=== PATIENT | male | born 1955 | race Caucasian/White ===

== ENCOUNTER → 2017-05-19 | Outpatient (CLI) | payer BC ==
[2017-05-19 07:15] LABS: Partial Thromboplastin Time 24.9 sec (22.0-30.0); Prothrombin Time 10.4 sec (9.0-12.0)
== END | disposition home or self-care (01) ==
LOC: LABWHC1 06:38
PROVIDERS: ATTEND Family Medicine
DX: R79.1 Abnormal coagulation profile (principal); Z51.81 Encounter for therapeutic drug level monitoring
CPT/HCPCS: 36415; 85610; 85730

== ENCOUNTER → 2018-09-12 | Outpatient (CLI) | payer BC ==
--- NOTE | 2018-09-12 08:01 | XR ---
EXAMINATION TYPE: XR chest 2V DATE OF EXAM: 09/12/2018 COMPARISON: NONE HISTORY: Shortness of breath TECHNIQUE: Frontal and lateral views of the chest are obtained. FINDINGS: Scattered senescent parenchymal changes noted. Hyperinflation compatible with COPD. No evidence for infiltrate. No evidence for atelectasis. Heart size is stable. Mediastinal structures are stable and grossly unremarkable. No evidence for hilar prominence. Degenerative changes dorsal spine. IMPRESSION: 1. No evidence for acute pulmonary disease.
--- NOTE | 2018-09-12 09:22 | US ---
EXAMINATION TYPE: US duplex aorta DATE OF EXAM: 09/12/2018 COMPARISON: NONE CLINICAL HISTORY: I10 hypertension. father had AAA, no symptoms per patient EXAM MEASUREMENTS: Abdominal Aorta: Proximal: unable to see due to bowel gas Mid: 1.5 x 2.2cm Distal: 1.8 x 1.9cm Bifurcation: Rt =1.1cm Lt =1.1cm *Limited imaging due to bowel gas and habitus, no obvious signs of aneurysm seen, unable to view prox imal portion, some arthrosclerotic changes noted. IMPRESSION: No evidence for abdominal aortic aneurysm at this time.
--- NOTE | 2018-09-12 11:34 | EST ---
EXERCISE STRESS AGE: 63 SEX: M HT: 5'5" WT: 225 PROTOCOL: Hernandez Stress Test STAGE: II DURATION OF EXERCISE: 7:27 HEART RATE REST: 53 BLOOD PRESSURE REST: 149/80 MAXIMUM HEART RATE ACHIEVED: 160 MAXIMUM BLOOD PRESSURE: 264/98 85% MPHR: 133 100% MPHR: 157 METS: 8.9 INDICATIONS: Hypertension. CLINICAL INFORMATION: Baseline heart rate 53 beats per minute. Baseline blood pressure 149/80 mmHg. Baseline 12-lead ECG shows normal sinus rhythm with normal ST segments. The interval is mildly prolonged. The patient exercised on a Hernandez protocol for 7 minutes 27 seconds. He had a hypertensive response to exercise. Peak blood pressure went up to 264/98 mmHg and was stopped on account of the hypertensive response. Peak heart rate 160 beats per minute. There was no ECG evidence for ischemia. No arrhythmias noted. IMPRESSION: Hypertensive response to exercise resulting in premature termination of the stress test. He exercised for 7.5 minutes. up until then there was no ECG evidence for ischemia nor were any arrhythmias noted. Then after a period of 5 minutes of rest, his blood pressure gradually improved to 162/72 mmHg. He was asymptomatic. The patient was referred back to see Dr. Burton for hypertension management. MMODL / IJN: [id number] /
== END | disposition home or self-care (01) ==
LOC: RADUSMAIN 07:43
PROVIDERS: ATTEND Internal Medicine
DX: I10 Essential (primary) hypertension (principal); R19.00 Intra-abdominal and pelvic swelling, mass and lump, unspecified site; Z87.891 Personal history of nicotine dependence
CPT/HCPCS: 71046; 93017; 93979

== ENCOUNTER → 2021-10-26 | Outpatient (CLI) | payer MEDICARE ==
[2021-10-26 17:56] LABS: Basophils # (A) 0.09 X 10*3/uL (0.00-0.10); Basophils % (A) 1.4 %; Eosinophils % (A) 3.1 %; HCT 46.7 % (39.6-50.0); HGB 15.5 g/dL (13.0-17.0); Immature Grans, Automated 0.2 %; Lymphocytes # (A) 1.96 X 10*3/uL (0.90-5.00); Lymphocytes % (A) 30.6 %; MCH 32.2 pg (27.0-32.0); MCHC 33.2 g/dL (32.0-37.0); MCV 96.9 fL (80.0-97.0); Mean Platelet Volume 9.6 fL (9.5-12.2); Monocytes % (A) 10.9 %; NRBC Per 100 WBC 0 /100 WBCS (0.0-0.0); Neutrophils # (A) 3.45 X 10*3/uL (1.80-7.70); Neutrophils % (A) 53.8 %; Platelet Count 243 X 10*3/uL (140-440); RBC 4.82 X 10*6/uL (4.40-5.60); RDW 12.8 % (11.5-14.5); WBC 6.41 X 10*3/uL (4.50-10.00)
[2021-10-26 18:02] LABS: Anion Gap 10.7 mmol/L (10.00-18.00); Carbon Dioxide 22.3 mmol/L (20.0-27.5); Potassium 4.3 mmol/L (3.5-5.5)
== END | disposition home or self-care (01) ==
LOC: LABPAT 12:48
PROVIDERS: ATTEND Orthopaedic Surgery Hand Surgery
DX: Z01.812 Encounter for preprocedural laboratory examination (principal); G56.21 Lesion of ulnar nerve, right upper limb
CPT/HCPCS: 80051; 85025

== ENCOUNTER 2021-11-03 12:45 | Day surgery (SDC) | payer MEDICARE ==
[2021-11-01 10:15] VITALS: BMI 33.0
--- NOTE | 2021-11-02 11:31 | P.HPOR ---
History of Present Illness H&P Date: 11/02/21 Chief Complaint: Right cubital tunnel release Subjective: This is a 66 year old male that presents today for follow up evaluation regarding right hand pain and weakness and right small finger limited ROM that he has noticed progressing over the past 2 months. He has a history of a prior elbow injury which required surgery over 25 years ago but is unsure exactly what the procedure was but thinks it was to remove a bone chip. He noticed the inability to cross the fingers recently and has now noticed atrophy on the dorsal radial aspect of the hand. He recently had EMG/NCV performed. Physical Examination: RUE: AIN/PIN/Radial/Median motor intact. Radial/Ulnar/Median SILT. 2+/4 Radial/Ulnar pulses palpated. 5/5 APB, 0/5 FDI with muscle wasting present, advanced from prior visit. Slight claw deformity present most notably in small finger. Passively correctable. NTTP over A1 Morelia's of all digits with smooth flexion/extension. Negative Finkelsteins, negative CMC grind, negative Durkan's compression. Elbow ROM 15-100. Wrist F/E 80/80. Full pronation/supination of wrist. Lateral incision over elbow well healed from previous surgery. Imaging/NCV/EMG: EMG/NCV indicate right severe active on chronic ulnar neuropathy localizing to the elbow with significant axonal loss with active on chronic denervation. No evidence of concurrent radiculopathy, plexopathy or nerve compression syndromes. Impression: 1.) Right cubital tunnel syndrome, severe. 2.) Severe elbow osteoarthritis Plan: Diagnosis and treatment options were discussed with the patient. He has severe cubital tunnel syndrome on EMG and physical exam that is progressively getting worse. I recommend surgical intervention with cubital tunnel release. Due to the severity of his symptoms and denervation present we discussed he will likely not get complete relief and he likely has some degree of permanent nerve damage. Risks and benefit of surgery including bleeding, infection, damage to surrounding tissue, need for further surgery, residual numbness/weakness were discussed and the patient wished to go forward with surgery. Labs/EKG are ordered and he will be scheduled for surgery in the near future. -Rory Mills DO Orthopedic Hand/Upper Extremity Surgeon Past Medical History Past Medical History: Osteoarthritis (OA) Additional Past Medical History / Comment(s): "rt elbow pinched nerve" History of Any Multi-Drug Resistant Organisms: None Reported Past Surgical History: Joint Replacement Additional Past Surgical History / Comment(s): radha hip replacement,thumb repair Additional Past Anesthesia/Blood Transfusion Reaction / Comment(s): no hx blood transfusion Smoking Status: Former smoker - Past Family History Mother Family Medical History: No Reported History Father Family Medical History: Cancer Additional Family Medical History / Comment(s): thyroid CA Medications and Allergies Home Medications Medication Instructions Recorded Confirmed Type Aspirin 81 mg PO DAILY 11/01/21 11/01/21 History Multivitamins, Thera [Multivitamin 1 tab PO DAILY 11/01/21 11/01/21 History (formulary)] Allergies Allergy/AdvReac Type Severity Reaction Status Date / Time No Known Allergies Allergy Verified 11/01/21 10:08 Physical Examination Osteopathic Statement: *. No significant issues noted on an osteopathic structural exam other than those noted in the History and Physical/Consult.
[~2021-11-03 12:45] MED LIST: HYDROmorphone 0.5 MG/0.5 ML SYRINGE IVP PRN; LACTATED RINGERS 1,000 ML IV SCH; LIDOCAINE 1% (10MG/ML) FOR IV START INTRADERMA PRN; ONDANSETRON 4 MG/2 ML VIAL IVP ONE
[2021-11-03] MEDS ORDERED: DEXAMETHASONE SOD PHOSPHATE 4 MG/ML 1 ML VIAL IV ONE (13:25)
[2021-11-03] MEDS ORDERED: ePHEDrine 50 MG/ML 1 ML VIAL ONE (14:27)
[2021-11-03] MEDS ORDERED: MIDAZOLAM 2 MG/2 ML VIAL ONE (14:27)
[2021-11-03] MEDS ORDERED: LIDOCAINE 1% INJ 10MG/ML (20 ML MDV) ONE (14:27)
[2021-11-03] MEDS ORDERED: PROPOFOL 10 MG/ML 20 ML VIAL IV ONE (14:27)
[2021-11-03] MEDS ORDERED: fentaNYL (PF) 50 MCG/ML 2 ML AMP ONE (14:27)
[2021-11-03] MEDS ORDERED: BUPIVACAINE (PF) 0.5% 30 ML VIAL SQ ONE ×3 (14:53→15:33)
[2021-11-03 16:03] VITALS: TEMP 97
[2021-11-03 16:35] VITALS: RESP 20
[2021-11-03 17:11] VITALS: BP 141/80; PULSE 59
--- NOTE | 2021-11-04 11:50 | P.OP ---
Date of Procedure: 11/04/21 Preoperative Diagnosis: 1.) Right cubital tunnel syndrome Postoperative Diagnosis: Right cubital tunnel syndrome Procedure(s) Performed: Right open cubital tunnel release Anesthesia: ROSEMARY Surgeon: Rory Mills Estimated Blood Loss (ml): 0 Pathology: none sent Condition: stable Disposition: PACU Description of Procedure: This is a 66 year old male who presented today for a right open cubital tunnel release after having failed conservative treatment for severe right cubital tunn el syndrome. Risks and benefits of surgery were discussed with the patient including bleeding, damage to surrounding tissue, infection, persistent numbness need for further surgery as well as risks of anesthesia including pulmonary embolism and even and the patient wished to proceed with surgical intervention. The patient was seen in the pre-operative area by myself. Consent and H&P were completed and updated. The correct extremity was marked in the pre- operative area by myself and all other questions were answered. Operative Narrative: The patient was brought to the operating room by the department of anesthesia. They remained on the portable stretcher and a rolling hand table was brought to the side of the operative extremity. Pre-operative time out was performed indicating the correct patient, procedure and laterality. All in the room agreed. Pre-operative antibiotics were given prior to skin incision. The patient was then drifted off to sleep by the department of anesthesia. A nonsterile tourniquet was then applied to the operative extremity and the right upper extremity was then prepped and draped in normal sterile fashion. The operative extremity was the exsanguinated with an esmarch bandage and the tourniquet was inflated to 250mmHg. Attention was brought to the medial elbow. 15 blade scalpel was used to incise skin in between the medial epicondyle and olecranon in a curvilinear and longitudinal fashion. Blunt dissection was taken down through subcutaneous tissue with tenotomy scissors and branches of the MABCN were identified and protected. Dissection was carried proximally and the ulnar nerve was identified and released in it's entirety to the the intermuscular septum. Dissection was then carried distally and there was found to be a substantial amount of scar tissue present around the entire medial epicondyle that was encased around the ulnar nerve causing severe compression from his prior elbow injury. Scar tissue and Adams's ligament was released at the medial epicondyle, the nerve appeared compressed at this location. Dissection was then carried out further distal and the fascia of the two heads of the FCU were incised and the ulnar nerve was decompressed with [place] and tenotomy scissors and appeared to be tension free. The elbow was the flexed and extended and the ulnar nerve appeared to be stable in a tension free manner. 0.5% bupivacaine was injected into the subcutaneous tissues. Skin closure was performed with interrupted 4-0 Monocryl sutures followed by running 4-0 nylon sutures tourniquet was then let down and the hand had immediate perfusion. The patient was then woken by the department of anesthesia and transferred to PACU in stable condition. Rory Mills D.O. Orthopedic Hand/Upper Extremity Surgeon
== END 2021-11-03 17:02 | disposition home or self-care (01) ==
LOC: OR 12:45
PROVIDERS: ATTEND Orthopaedic Surgery Hand Surgery
DX: G56.21 Lesion of ulnar nerve, right upper limb (principal); M19.021 Primary osteoarthritis, right elbow; Z96.643 Presence of artificial hip joint, bilateral; Z98.890 Other specified postprocedural states; Z87.891 Personal history of nicotine dependence; Z80.8 Family history of malignant neoplasm of other organs or systems; Z79.82 Long term (current) use of aspirin; I77.6 Arteritis, unspecified; Z97.2 Presence of dental prosthetic device (complete) (partial)
CPT/HCPCS: 64718; J2250; J1100; J0690; J2405; J2001; J3010; J2704